=== PATIENT | male | born 1965 | race Caucasian/White ===

== ENCOUNTER 2019-08-28 13:31 | Emergency (ER) | payer BC ==
[~2019-08-28] VITALS: Ht 180.3 cm; Wt 79.8 kg
[2019-08-28 13:37] VITALS: BP 153/100
[2019-08-28] MEDS ORDERED: LIDOCAINE HCL/PF 1% 30 ML VIAL TP ONE (14:00)
[2019-08-28] MEDS ORDERED: LIDOCAINE HCL/MPF 1% 30 ML VIAL IJ ONE (14:01)
== END 2019-08-28 15:37 | disposition home or self-care (01) ==
LOC: ER 13:39
DX: S61.216A Laceration without foreign body of right little finger without damage to nail, initial encounter (principal); W18.39XA Other fall on same level, initial encounter; Y93.89 Activity, other specified; Y92.89 Other specified places as the place of occurrence of the external cause; Y99.8 Other external cause status
CPT/HCPCS: 12001; 73140; 99283; A6403; J3490 ×2